=== PATIENT | female | born 2000 | race Caucasian/White ===

== ENCOUNTER 2020-10-31 15:53 | Emergency (ER) | payer OTHER, MEDICAID, BC ==
[~2020-10-31] VITALS: Ht 175.3 cm; Wt 80.3 kg
[~2020-10-31 15:53] MED LIST: METHYLPHENIDATE30 MG PO; RITALIN20 MG PO
[2020-10-31 16:07] VITALS: BP 112/64
[2020-10-31 16:45] LABS: HEMOGLOBIN 12.8 gm/dL (12.0-15.0); MCH 30.1 pg (26.0-34.0); MCHC 33.6 g/dL (28.0-37.0); MCV 89.6 fL (80.0-100.0); MPV 8.5 fl. (7.2-11.1); RBC 4.24 mil/uL (4.20-5.00); RDW-CV 12.7 % (10.5-14.5)
[2020-10-31 16:54] LABS: CALCIUM 9.2 mg/dL (8.5-10.1); CREATININE 0.7 mg/dL (0.6-1.3)
== END 2020-10-31 17:31 | disposition home or self-care (01) ==
LOC: M.ERS 15:53
PROVIDERS: Emergency Medicine Emergency Medical Services
DX: F41.9 Anxiety disorder, unspecified (principal); F90.9 Attention-deficit hyperactivity disorder, unspecified type